=== PATIENT | female | born 1945 | race Caucasian/White ===

== ENCOUNTER 2018-08-17 14:09 | Emergency (ER) | payer MEDICARE, OTHER ==
--- NOTE | 2018-08-17 15:17 | EDM.PDOC ---
ED HPI GENERAL MEDICAL PROBLEM - General Chief Complaint: Head Injury Stated Complaint: HEAD INJURY Time Seen by Provider: 08/17/18 14:59 Source of Information: Reports: Patient, Family (), RN Notes Reviewed History Limitations: Reports: No Limitations - History of Present Illness INITIAL COMMENTS - FREE TEXT/NARRATIVE: The patient states that she tripped and fell while walking at [facility] around noon today, striking the back center of her head. She was not knocked unconscious. She denies having a headache. There has not been any altered mental status, indeed, the patient drove herself to the ED. No recent vision changes or neurologic symptoms. She states she is otherwise uninjured, although she does complain of posterior neck soreness/stiffness. The patient's PCP is Sherry Proctor. Head Pain Score (Numeric/FACES): 3 - Related Data Allergies Allergy/AdvReac Type Severity Reaction Status Date / Time Penicillins Allergy Rash Verified 08/17/18 14:17 Sulfa (Sulfonamide Allergy Rash Verified 08/17/18 14:17 Antibiotics) Home Meds: Home Meds Albuterol [Proventil HFA] 2 puff IH Q2HR PRN 04/07/14 [History] Brimonidine Tartrate 1 drop OP DAILY 04/07/14 [History] Ipratropium [Atrovent HFA] 2 puff IH BID 04/07/14 [History] Levothyroxine 25 mg PO DAILY 04/07/14 [History] PEG 400/Propylene Glycol [Systane 0.4-0.3%] 1 drop OP DAILY 04/07/14 [History] Ped Mvit A,C,D3 No.21/Fluoride [Vit A,D,C & Fluor] 1 mg PO DAILY 04/07/14 [ History] Travoprost [Travatan Z] 1 drop OP DAILY 04/07/14 [History] levoFLOXacin [Levaquin] 500 mg PO DAILY #7 tab 04/07/14 [Rx] predniSONE [Prednisone] 20 mg PO Q12HR #8 tablet 04/07/14 [Rx] Past Medical History Cardiovascular History: Reports: High Cholesterol Respiratory History: Reports: Asthma (PFT confirmed) Genitourinary History: Reports: Urinary Incontinence (stress incontinence) Musculoskeletal History: Reports: Osteoarthritis Endocrine/Metabolic History: Reports: Hypothyroidism - Past Surgical History HEENT Surgical History: Reports: Cataract Surgery Musculoskeletal Surgical History: Reports: Shoulder Surgery (right, open) Social & Family History - Tobacco Use Smoking Status *Q: Current Every Day Smoker Years of Tobacco use: 58 Packs/Tins Daily: 0.3 Packs/Tins Daily Comment: Down from 1 ppd - Caffeine Use Caffeine Use: Reports: Soda, Tea - Alcohol Use Alcohol Use History: No - Recreational Drug Use Recreational Drug Use: No - Living Situation & Occupation Living situation: Reports: , with Spouse Occupation: Retired ED ROS GENERAL - Review of Systems Review Of Systems: ROS reveals no pertinent complaints other than HPI. ED EXAM, HEAD INJURY - Physical Exam Exam: See Below Exam Limited By: No Limitations General Appearance: Alert, WD/WN, No Apparent Distress Head: Normocephalic, Scalp Hematoma (about 8 cm diameter, central posterior- superior scalp, with punctate central drop of blood. Tender only to the inferior aspect.) Eyes: Bilateral Eye: EOMI, Normal Inspection Ears: Normal External Exam, Normal Canal, Hearing Grossly Normal, Normal TMs Nose: Normal Inspection, Normal Mucousa, No Blood Throat/Mouth: Normal Inspection, Normal Lips, Normal Teeth, Normal Gums, Normal Oropharynx, Normal Voice, No Airway Compromise Neck: Normal Alignment, Limited Range of Motion, Tenderness (posterior cervical spine) Respiratory: No Respiratory Distress, Lungs Clear, Normal Breath Sounds, No Accessory Muscle Use Cardiovascular: Normal Peripheral Pulses, Regular Rate, Rhythm, No Gallop, No JVD, No Murmur, No Rub GI/Abdominal Exam: Normal Bowel Sounds, Soft, Non-Tender, No Organomegaly, No Distention, No Abnormal Bruit, No Mass (Female) Exam: Deferred Rectal (Female) Exam: Deferred Back Exam: Full Range of Motion, Normal Inspection, NT Extremities: Normal Inspection, Normal Range of Motion, Normal Capillary Refill Neurologic: well services operator II-XII nml As Tested, No Motor/Sensory Deficits, Alert, Oriented x 3 Skin: Normal Color, Warm/Dry Course - Vital Signs Last Recorded V/S: Last Vital Signs Temp 36.1 C 08/17/18 14:15 Pulse 89 08/17/18 14:15 Resp 18 08/17/18 14:15 BP 153/88 H 08/17/18 14:15 Pulse Ox 98 08/17/18 14:15 - Re-Assessments/Exams Free Text/Narrative Re-Assessment/Exam: 08/17/18 15:17 The patient has a fairly large hematoma on her posterior scalp, however, I am not concerned about an intracranial injury. The patient is complaining, however , of posterior neck pain, of which I am much more concerned. A cervical collar was therefore placed. I ordered a CT scan of the head and C-spine. 08/17/18 16:12 CT of the head without contrast is read by Dr. Small as: 1. Large soft tissue hematoma posteriorly within the scalp. 2. Senescent change as noted above. 3. No acute intracranial abnormality is seen. No skull fracture is noted. CT of the cervical spine without contrast is read by Dr. Small as: 1. Degenerative change as noted above. 2. Nothing acute is seen on CT study of the cervical spine. 08/17/18 16:28 The patient was reevaluated and she reports no tenderness to palpation of her cervical spine. I removed the cervical collar, and will discharge her home. I recommended that she apply ice packs to the hematoma the next couple of days, and she may take an [id number] analgesic as needed. Departure - Departure Time of Disposition: 16:36 Disposition: Home, Self-Care 01 Condition: Good Clinical Impression: Fall, Scalp hematoma - Discharge Information *PRESCRIPTION DRUG MONITORING PROGRAM REVIEWED*: Not Applicable *COPY OF PRESCRIPTION DRUG MONITORING REPORT IN PATIENT JONATHAN: Not Applicable Referrals: Sherry Proctor PA-C [Primary Care Provider] - Forms: ED Department Discharge Additional Instructions: You were seen in the emergency room after tripping and falling, striking the back of your head. Workup in the ER included the scans of your head and neck, both of which were normal. You do not have a skull fracture. You do not have a broken neck. For the bump on the back of your head, we recommend that you apply ice packs for the next couple of days. Wash your hair with ordinary shampoo, as you normally would. You may take an [id number] pain reliever, such as Tylenol, ibuprofen, or naproxen, as needed. Follow-up with your PCP, Sherry Proctor, as needed. If any other problems, please do not hesitate to return to the ER.
--- NOTE | 2018-08-17 16:06 | CT ---
Head CT Technique: Multiple axial sections through the brain were obtained. Intravenous contrast was not utilized. Comparison: No prior intracranial imaging. Findings: Large soft tissue hematoma is seen posteriorly within the scalp. Ventricles along with basal cisterns and sulci over the convexities are mild to moderately prominent. Diffuse diminished density is noted within the periventricular and subcortical white matter compatible with small vessel ischemic demyelination change. Old lacunar infarcts are noted within the basal ganglia. No other abnormal parenchymal densities are seen. No evidence of intracranial hemorrhage. Bone window settings were reviewed which shows the visualized sinuses to appear clear. No skull fracture is seen. Impression: 1. Large soft tissue hematoma posteriorly within the scalp. 2. Senescent change as noted above. 3. No acute intracranial abnormality is seen. No skull fracture is noted. Diagnostic code #2
--- NOTE | 2018-08-17 16:06 | CT ---
CT cervical spine Technique: Multiple axial sections were obtained from above C1 inferiorly to the bottom of T2. Reconstructed sagittal and coronal images were reviewed. Comparison: No prior CT cervical spine study. Findings: Mild spondylolisthesis is noted at C5-6 compatible with degenerative apophyseal change. Other degenerative apophyseal change is seen throughout the cervical spine. Disc spaces and vertebral body heights are maintained. Moderate left sided neural foraminal stenosis is noted at C3-4. Mild right-sided neural foraminal stenosis is noted at C4-5. Moderate left-sided neural foraminal stenosis is noted at C5-6. Other neural foramina are patent. No bony central canal stenosis is seen. No fracture is identified. Mild degenerative change noted within the uncovertebral joints at C3-4 and C4-5. Mild scoliosis is noted. Impression: 1. Degenerative change as noted above. 2. Nothing acute is seen on CT study of the cervical spine. Diagnostic code #1
== END 2018-08-17 16:44 | disposition home or self-care (01) ==
LOC: JD.ED 14:09
DX: S00.03XA Contusion of scalp, initial encounter (principal); M54.2 Cervicalgia; E03.9 Hypothyroidism, unspecified; J45.909 Unspecified asthma, uncomplicated; W01.198A Fall on same level from slipping, tripping and stumbling with subsequent striking against other object, initial encounter; F17.210 Nicotine dependence, cigarettes, uncomplicated; Z79.899 Other long term (current) drug therapy; Z88.0 Allergy status to penicillin; Z88.2 Allergy status to sulfonamides
CPT/HCPCS: 70450; 70450-26; 72125; 72125-26; 99284-25

== ENCOUNTER 2019-07-27 10:47 | Emergency (ER) | payer MEDICARE, OTHER ==
[2019-07-27] MEDS ORDERED: Albuterol/Ipratropium 3.0-0.5 MG/3 ML Neb Soln NEB ONE (12:05)
--- NOTE | 2019-07-27 12:10 | EDM.PDOC ---
ED HPI GENERAL MEDICAL PROBLEM - General Chief Complaint: Respiratory Problem Stated Complaint: SOB,COUGHING Time Seen by Provider: 07/27/19 11:39 Source of Information: Reports: Patient, RN Notes Reviewed History Limitations: Reports: No Limitations - History of Present Illness INITIAL COMMENTS - FREE TEXT/NARRATIVE: Patient is a 74-year-old female who presents to the ED for the evaluation of increased shortness of breath and a cough. She notes this has been going on for 2 weeks now. She states that the cough was not productive at the beginning of this, however the last 4-5 days, she is getting increasingly more colored sputum with this cough. She notes it to be yellow to green in color. She has a history of asthma, and does take albuterol inhalers, nebulizers for help with this. She notes that she has been taking her inhalers more often, her last albuterol was at 10 AM this morning. She states that the nebs help her the most , provider at least 1 hour relief. She notes that even walking small distances like 25 feet, to the bathroom and back, that this does wind her, she has to sit down and recuperate for quite some time after this. She states she's had a runny nose, but not had any discernible fever at home. She came to the ER, she states she is feeling worse, and is not able to get in with her doctor until Wednesday. Primary care provider is Sherry Proctor The patient states that her was recently diagnosed with pneumonia as well, this was roughly 3 or 4 days ago. She has gotten an influenza vaccine this year. Of note patient is still a current smoker, smokes about half pack per day. By history, it would suggest that she does have COPD as well and asthma. - Related Data Allergies Allergy/AdvReac Type Severity Reaction Status Date / Time Penicillins Allergy Rash Verified 07/27/19 11:09 Sulfa (Sulfonamide Allergy Rash Verified 07/27/19 11:09 Antibiotics) Home Meds: Home Meds Albuterol [Proventil HFA] 2 puff IH Q2HR PRN 04/07/14 [History] Ipratropium [Atrovent HFA] 2 puff IH BID 04/07/14 [History] Levothyroxine 25 mcg PO DAILY 04/07/14 [History] PEG 400/Propylene Glycol [Systane 0.4-0.3%] 1 drop OP DAILY 04/07/14 [History] Bimatoprost [LUMIGAN 0.01% Ophth Soln] 1 drop EYEBOTH BEDTIME 07/27/19 [History] atorvaSTATin [Lipitor] 20 mg PO BEDTIME 07/27/19 [History] hydroCHLOROthiazide [Hydrochlorothiazide] 25 mg PO DAILY 07/27/19 [History] methylPREDNISolone [Medrol Dose Pack] 4 mg PO ASDIRECTED 5 Days #1 dospk [Rx] Past Medical History Cardiovascular History: Reports: High Cholesterol Respiratory History: Reports: Asthma Genitourinary History: Reports: Urinary Incontinence Musculoskeletal History: Reports: Osteoarthritis Endocrine/Metabolic History: Reports: Hypothyroidism - Past Surgical History HEENT Surgical History: Reports: Cataract Surgery Musculoskeletal Surgical History: Reports: Shoulder Surgery Social & Family History - Tobacco Use Smoking Status *Q: Current Every Day Smoker Years of Tobacco use: 50 Packs/Tins Daily: 0.5 - Caffeine Use Caffeine Use: Reports: Soda - Recreational Drug Use Recreational Drug Use: No - Living Situation & Occupation Living situation: Reports: , with Spouse Occupation: Retired ED ROS GENERAL - Review of Systems Review Of Systems: See Below Constitutional: Reports: Decreased Appetite. Denies: Fever, Chills HEENT: Reports: Rhinitis Respiratory: Reports: Shortness of Breath, Wheezing, Cough, Sputum Cardiovascular: Denies: Chest Pain GI/Abdominal: Denies: Abdominal Pain, Constipation, Diarrhea, Nausea, Vomiting Neurological: Denies: Dizziness, Headache ED EXAM, GENERAL - Physical Exam Exam: See Below Exam Limited By: No Limitations General Appearance: Alert, WD/WN, No Apparent Distress Eye Exam: Bilateral Eye: EOMI, Normal Inspection, PERRL Ears: Normal External Exam Nose: Normal Inspection, Normal Mucosa, No Blood Throat/Mouth: Normal Inspection, Normal Lips, Normal Teeth, Normal Gums, Normal Oropharynx, Normal Voice, No Airway Compromise Head: Atraumatic, Normocephalic Neck: Normal Inspection Respiratory/Chest: No Respiratory Distress, No Accessory Muscle Use, Chest Non- Tender, Decreased Breath Sounds (diffuse bilaterally), Wheezing (diffuse bilaterally) Cardiovascular: Normal Peripheral Pulses, Regular Rate, Rhythm, No Edema, No Murmur Peripheral Pulses: 3+: Radial (L), Radial (R) GI/Abdominal: Normal Bowel Sounds, Soft, Non-Tender, No Distention, No Mass Extremities: Normal Inspection, Normal Capillary Refill Neurological: Alert, Oriented, Normal Cognition, No Motor/Sensory Deficits Psychiatric: Normal Affect, Normal Mood Skin Exam: Warm, Dry, Intact, Normal Color, No Rash Course - Vital Signs Last Recorded V/S: Last Vital Signs Temp 97.4 F 07/27/19 11:07 Pulse 84 07/27/19 11:07 Resp 19 07/27/19 13:38 BP 136/65 07/27/19 11:07 Pulse Ox 92 L 07/27/19 13:38 - Orders/Labs/Meds Orders: Active Orders 24 hr Category Date Time Status RT Aerosol Therapy [RC] ASDIRECTED Care 07/27/19 12:05 Active Labs: Laboratory Tests 07/27/19 07/27/19 Range/Units 12:28 12:28 WBC 6.11 (3.98-10.04) K/mm3 RBC 4.24 (3.98-5.22) M/mm3 Hgb 13.7 (11.2-15.7) gm/dl Hct 38.9 (34.1-44.9) % MCV 91.7 (79.4-94.8) fl MCH 32.3 H (25.6-32.2) pg MCHC 35.2 (32.2-35.5) g/dl RDW Std Deviation 47.1 H (36.4-46.3) fL Plt Count 200 (182-369) K/mm3 MPV 8.9 L (9.4-12.3) fl Neutrophils % (Manual) 67 H (40-60) % Band Neutrophils % 0 (0-10) % Lymphocytes % (Manual) 23 (20-40) % Atypical Lymphs % 0 % Monocytes % (Manual) 9 (2-10) % Eosinophils % (Manual) 1 (0.7-5.8) % Basophils % (Manual) 0 L (0.1-1.2) Platelet Estimate Adequate RBC Morph Comment Normal Sodium 134 L (136-145) mEq/L Potassium 2.9 L (3.5-5.1) mEq/L Chloride 95 L D (98-107) mEq/L Carbon Dioxide 28 (21-32) mEq/L Anion Gap 13.9 (5-15) BUN 15 (7-18) mg/dL Creatinine 0.9 (0.55-1.02) mg/dL Est Cr Clr Drug Dosing 38.20 mL/min Estimated GFR (MDRD) > 60 (>60) mL/min BUN/Creatinine Ratio 16.7 (14-18) Glucose 87 (83-115) mg/dL Calcium 9.2 (8.5-10.1) mg/dL Total Bilirubin 0.6 (0.2-1.0) mg/dL AST 28 (15-37) U/L ALT 26 (14-59) U/L Alkaline Phosphatase 68 (46-116) U/L Total Protein 7.0 (6.4-8.2) g/dl Albumin 3.4 (3.4-5.0) g/dl Globulin 3.6 gm/dL Albumin/Globulin Ratio 0.9 L (1-2) Meds: Medications Discontinued Medications Generic Name Dose Route Start Last Admin Trade Name Freq PRN Reason Stop Dose Admin Albuterol/Ipratropium 3 ml 07/27/19 12:05 07/27/19 12:34 Duoneb 3.0-0.5 Mg/3 Ml NEB 07/27/19 12:06 3 ml ONETIME ONE Administration Potassium Chloride 40 meq 07/27/19 13:10 07/27/19 13:21 Klor-Con M20 PO 07/27/19 13:11 40 meq ONETIME ONE Administration - Re-Assessments/Exams Free Text/Narrative Re-Assessment/Exam: 07/27/19 12:10 Patient presents to the ED for evaluation of increased cough and shortness of breath. Did order a chest x-ray, CBC, CMP, and a DuoNeb for initial management. 07/27/19 13:09 Chest x-ray is done, and there is increased density identified within the right midlung fixture, which is felt to be atelectasis, emphysematous changes noted, and mild disc space during scattered within the spine and mild scoliosis. Metabolic panel is back, and is remarkable for a decreased potassium at 2.9, 40 mEq by mouth potassium will be ordered for this. Patient's white blood cell count is within normal limits as well. This is most likely an exacerbation of a COPD type asthma nature, we will likely send patient home on a burst of steriods, and have her follow-up with her provider on Wednesday. Departure - Departure Time of Disposition: 13:22 Disposition: Home, Self-Care 01 Condition: Fair Clinical Impression: COPD suggested by initial evaluation Exacerbation of asthma Qualifiers: Asthma severity: mild Asthma persistence: unspecified Qualified Code(s): J45.901 - Unspecified asthma with (acute) exacerbation - Discharge Information *PRESCRIPTION DRUG MONITORING PROGRAM REVIEWED*: No *COPY OF PRESCRIPTION DRUG MONITORING REPORT IN PATIENT JONATHAN: No Prescriptions: methylPREDNISolone [Medrol Dose Pack] 4 mg PO ASDIRECTED 5 Days #1 dospk Instructions: Steps to Quit Smoking, [id number] Referrals: Sherry Proctor PA-C [Primary Care Provider] - Forms: ED Department Discharge Additional Instructions: You were evaluated in the ER today regarding your cough and difficulty breathing. Your chest x-ray demonstrated a spot of atelectasis, which is deflated their sacs within the lungs, as you are not taking as deeper breaths as you should be. You stated that you have incentive spirometer is at home, please use one of these, 10 times every hour while awake. This will help relieve the atelectasis, and help prevent pneumonia. Your chest x-ray also was suggestive of COPD like changes, but there is no sign of a pneumonia today's visit. Laboratory evaluation demonstrated a white blood cell count is within normal limits, but your potassium was mildly low, you did receive 40 mEq of potassium at today's ER visit. You received 1 DuoNeb in the ER, recommend that when he go home, you take your nebulizer you already have, 4 times daily for the next 2 days, then decrease to 3 times daily for the next 2 days, then twice a day for the next 2 days, and then take as needed after that if symptoms are getting better. You were also given a Medrol Dosepak, please take as directed. This was electronically prescribed to the [facility]. Recommend you follow up with her regular provider, Sherry Proctor, sometime early next week for recheck of your symptoms and laboratory evaluation to make sure things are getting better as expected. Please return to the ER however if your symptoms change or worsen in any way. Sepsis Event Note - Evaluation Sepsis Screening Result: No Definite Risk - Focused Exam Vital Signs: Vital Signs Temp Pulse Resp BP Pulse Ox Pulse Ox 07/27/19 13:38 19 92 L 07/27/19 12:05 94 L 07/27/19 11:07 97.4 F 84 16 136/65 94 L Date Exam was Performed: 07/27/19 Time Exam was Performed: 21:06 - My Orders Last 24 Hours: My Active Orders 07/27/19 12:05 RT Aerosol Therapy [RC] ASDIRECTED - Assessment/Plan Last 24 Hours: My Active Orders 07/27/19 12:05 RT Aerosol Therapy [RC] ASDIRECTED
--- NOTE | 2019-07-27 12:58 | CR ---
Chest: Two views of the chest were obtained. Comparison: Prior chest x-ray of 04/07/19. Increased density is identified within the right midlung. Most of this appears to be due to atelectasis along the right minor fissure as seen on the lateral view. Lungs otherwise are clear. Heart size and mediastinum are normal. Diaphragms are flattened on the lateral view compatible with emphysematous change. Mild disc space narrowing is scattered within the spine with mild scoliosis. Impression: 1. Thick area of atelectasis along the minor fissure on the right side. 2. Emphysematous change. 3. Other findings believed to be incidental as noted above. Diagnostic code #3 This report was dictated in [place] Standard Time
[2019-07-27] MEDS ORDERED: Potassium Chloride 20 MEQ Tab.ER PO ONE (13:10)
== END 2019-07-27 13:38 | disposition home or self-care (01) ==
LOC: JD.ED 10:47
DX: J45.901 Unspecified asthma with (acute) exacerbation (principal); E78.00 Pure hypercholesterolemia, unspecified; M19.90 Unspecified osteoarthritis, unspecified site; E03.9 Hypothyroidism, unspecified; F17.210 Nicotine dependence, cigarettes, uncomplicated; Z79.899 Other long term (current) drug therapy; Z88.0 Allergy status to penicillin; Z88.2 Allergy status to sulfonamides
CPT/HCPCS: 36415; 71046; 80053; 85007; 85027; 94640; 99285; A9270; 99283; J7620-GY

== ENCOUNTER 2020-01-28 08:31 | Emergency (ER) | payer MEDICARE, OTHER ==
[2020-01-28] MEDS ORDERED: Acetaminophen/HYDROcodone 325-5 MG Tab PO ONE (09:01)
[2020-01-28] MEDS ORDERED: Diphtheria,Pertussis(Acell),Tetanus Vaccine 0.5 ML Syringe IM ONE (09:04)
--- NOTE | 2020-01-28 10:36 | CR ---
Right wrist: 4 views of the right wrist were obtained. Comparison: No previous study. Soft tissue injury is identified. Joint space narrowing is noted within the MCP joints primarily within the 2nd and 3rd digits. Joint space narrowing is noted off the distal navicular bone as well as moderate degenerative change within the CMC joint of the thumb. No acute fracture, dislocation or other bony abnormality is seen. Impression: 1. Degenerative change as noted above. 2. Soft tissue injury. 3. No acute bony abnormality is appreciated. Diagnostic code #3 This report was dictated in MDT
[2020-01-28] MEDS ORDERED: cefTRIAXone 1 GM, Lidocaine 1% 2.1 ML IM SCH ×2 (10:45)
--- NOTE | 2020-01-28 10:47 | EDM.PDOC ---
ED HPI GENERAL MEDICAL PROBLEM - General Chief Complaint: Skin Complaint Stated Complaint: FALL (RIGHT HAND LAC)/ SOB (COPD) Time Seen by Provider: 01/28/20 08:50 Source of Information: Reports: Patient History Limitations: Reports: No Limitations - History of Present Illness INITIAL COMMENTS - FREE TEXT/NARRATIVE: The patient presents with right hand and wrist pain and swelling. The patient went to sit down 2 days ago and she fell and scrapped the dorsal aspect of her hand and wrist. She has swelling, pain and redness now. She has no fever or chills. Her tetanus is not up to date. She is right handed. Onset: Sudden Duration: Day(s): (2) Location: Reports: Upper Extremity, Right (hand) Quality: Reports: Sharp Severity: Moderate Improves with: Reports: Immobilization Worsens with: Reports: Movement Context: Reports: Trauma (fall) Associated Symptoms: Reports: No Other Symptoms Right Anterior Hand Pain Score (Numeric/FACES): 10 - Related Data Allergies Allergy/AdvReac Type Severity Reaction Status Date / Time Penicillins Allergy Rash Verified 01/28/20 08:50 Sulfa (Sulfonamide Allergy Rash Verified 01/28/20 08:50 Antibiotics) Home Meds: Home Meds Albuterol [Proventil HFA] 2 puff IH Q2HR PRN 04/07/14 [History] Ipratropium [Atrovent HFA] 2 puff IH BID 04/07/14 [History] Levothyroxine 25 mcg PO DAILY 04/07/14 [History] PEG 400/Propylene Glycol [Systane 0.4-0.3%] 1 drop OP DAILY 04/07/14 [History] Bimatoprost [LUMIGAN 0.01% Ophth Soln] 1 drop EYEBOTH BEDTIME 07/27/19 [History] atorvaSTATin [Lipitor] 20 mg PO BEDTIME 07/27/19 [History] hydroCHLOROthiazide [Hydrochlorothiazide] 25 mg PO DAILY 07/27/19 [History] methylPREDNISolone [Medrol Dose Pack] 4 mg PO ASDIRECTED 5 Days #1 dospk 07/27/19 [Rx] Past Medical History Cardiovascular History: Reports: High Cholesterol Respiratory History: Reports: Asthma Genitourinary History: Reports: Urinary Incontinence Musculoskeletal History: Reports: Osteoarthritis Endocrine/Metabolic History: Reports: Hypothyroidism - Past Surgical History HEENT Surgical History: Reports: Cataract Surgery Musculoskeletal Surgical History: Reports: Shoulder Surgery Social & Family History - Tobacco Use Smoking Status *Q: Current Every Day Smoker Years of Tobacco use: 40 Packs/Tins Daily: 0.5 - Caffeine Use Caffeine Use: Reports: Tea - Recreational Drug Use Recreational Drug Use: No - Living Situation & Occupation Living situation: Reports: , with Spouse Occupation: Retired ED ROS GENERAL - Review of Systems Review Of Systems: See Below Constitutional: Reports: No Symptoms HEENT: Reports: No Symptoms Respiratory: Reports: No Symptoms Cardiovascular: Reports: No Symptoms Endocrine: Reports: No Symptoms GI/Abdominal: Reports: No Symptoms : Reports: No Symptoms Musculoskeletal: Reports: Other (Edema, pain and erythema of the right hand and wrist) ED EXAM, SKIN/RASH Exam: See Below Exam Limited By: No Limitations General Appearance: Alert, No Apparent Distress Ears: Normal External Exam Nose: Normal Inspection Head: Atraumatic, Normocephalic Neck: Normal Inspection Respiratory/Chest: No Respiratory Distress, Lungs Clear, Normal Breath Sounds Cardiovascular: Regular Rate, Rhythm, No Edema, No Murmur GI/Abdominal: Soft, Non-Tender, No Organomegaly, No Mass Extremities: Other (Skin tear with avulsion of skin to the right dorsal hand with edema, pain upon palpation and erythema) Course - Vital Signs Last Recorded V/S: Last Vital Signs Temp 97.5 F 01/28/20 08:43 Pulse 81 01/28/20 08:43 Resp 18 01/28/20 08:43 BP 133/72 01/28/20 08:43 Pulse Ox 94 L 01/28/20 08:43 - Orders/Labs/Meds Orders: Active Orders 24 hr Category Date Time Status Vaccines to be Administered [RC] PER UNIT ROUTINE Care 01/28/20 09:04 Active cefTRIAXone [Rocephin] 1 gm Med 01/28/20 10:45 Active Lidocaine 1% [Xylocaine 1%] 2.1 ml IM Q24H Durable Medical Equipment for Discharge [DME for Oth 01/28/20 10:40 Ordered Discharge] [COMM] Stat Medication Orders Ceftriaxone Sodium 1 gm/ (Lidocaine HCl 2.1 ml) 0 gm IM Q24H ALEJA Labs: Laboratory Tests 01/28/20 01/28/20 01/28/20 Range/Units 09:16 09:16 09:16 WBC 8.88 (3.98-10.04) K/mm3 RBC 4.31 (3.98-5.22) M/mm3 Hgb 14.0 (11.2-15.7) gm/dl Hct 40.0 (34.1-44.9) % MCV 92.8 (79.4-94.8) fl MCH 32.5 H (25.6-32.2) pg MCHC 35.0 (32.2-35.5) g/dl RDW Std Deviation 45.8 (36.4-46.3) fL Plt Count 242 (182-369) K/mm3 MPV 9.0 L (9.4-12.3) fl Neut % (Auto) 76.6 H (34.0-71.1) % Lymph % (Auto) 12.8 L (19.3-51.7) % [place] % (Auto) 9.9 (4.7-12.5) % Eos % (Auto) 0.3 L (0.7-5.8) Baso % (Auto) 0.2 (0.1-1.2) % Neut # (Auto) 6.79 H (1.56-6.13) K/mm3 Lymph # (Auto) 1.14 L (1.18-3.74) K/mm3 [place] # (Auto) 0.88 H (0.24-0.36) K/mm3 Eos # (Auto) 0.03 L (0.04-0.36) K/mm3 Baso # (Auto) 0.02 (0.01-0.08) K/mm3 ESR 42 H (0-20) mm/hr C-Reactive Protein 6.9 H* (<1.0) mg/dL Meds: Medications Generic Name Dose Route Start Last Admin Trade Name Freq PRN Reason Stop Dose Admin Ceftriaxone Sodium 1 gm/ 0 gm 01/28/20 10:45 Lidocaine HCl 2.1 ml IM Q24H ALEJA Discontinued Medications Generic Name Dose Route Start Last Admin Trade Name Freq PRN Reason Stop Dose Admin Hydrocodone Bitart/Acetaminophen 1 tab 01/28/20 09:01 01/28/20 09:13 [place] 325-5 Mg PO 01/28/20 09:02 1 tab ONETIME ONE Administration Diphtheria/Tetanus/Acell Pertussis 0.5 ml 01/28/20 09:04 Adacel IM 01/28/20 09:05 .ONCE ONE - Re-Assessments/Exams Free Text/Narrative Re-Assessment/Exam: 01/28/20 10:45 I ordered an x-ray of her wrist and labs. The x-ray of her wrist shows some degenerative change but no fracture. Her WBC was normal. Her ESR was elevated at 42 and CRP was elevated at 6.9. I had my nurse clean the wound. I will get her a shot of rocephin and get her on keflex and I will splint her wrist. I will have her follow up with her doctor within 3 days. Departure - Departure Time of Disposition: 10:50 Disposition: Home, Self-Care 01 Condition: Good Clinical Impression: Cellulitis of multiple sites of hand and wrist Fall Qualifiers: Encounter type: initial encounter Qualified Code(s): W19.XXXA - Unspecified fall, initial encounter - Discharge Information *PRESCRIPTION DRUG MONITORING PROGRAM REVIEWED*: Not Applicable *COPY OF PRESCRIPTION DRUG MONITORING REPORT IN PATIENT JONATHAN: Not Applicable Referrals: Sherry Proctor PA-C [Primary Care Provider] - 3 Days Additional Instructions: Soak your hand in warm soapy water 2 times per day and put antibiotic ointment after for 5 days and then leave it open to dry with no antibiotic ointment. Wear the splint for comfort. Take the keflex 4 times per day for 10 days. Please return if this is not getting better within 3 days. Follow up with Sherry Proctor within 3 days. Sepsis Event Note (ED) - Evaluation Sepsis Screening Result: No Definite Risk - Focused Exam Vital Signs: Vital Signs Temp Pulse Resp BP Pulse Ox 01/28/20 08:43 97.5 F 81 18 133/72 94 L - My Orders Last 24 Hours: My Active Orders 01/28/20 09:04 Vaccines to be Administered [RC] PER UNIT ROUTINE 01/28/20 10:40 Durable Medical Equipment for Discharge [DME for Discharge] [COMM] Stat 01/28/20 10:45 cefTRIAXone [Rocephin] 1 gm Lidocaine 1% [Xylocaine 1%] 2.1 ml IM Q24H - Assessment/Plan Last 24 Hours: My Active Orders 01/28/20 09:04 Vaccines to be Administered [RC] PER UNIT ROUTINE 01/28/20 10:40 Durable Medical Equipment for Discharge [DME for Discharge] [COMM] Stat 01/28/20 10:45 cefTRIAXone [Rocephin] 1 gm Lidocaine 1% [Xylocaine 1%] 2.1 ml IM Q24H
== END 2020-01-28 11:06 | disposition home or self-care (01) ==
LOC: JD.ED 08:31
DX: L03.113 Cellulitis of right upper limb (principal); E78.00 Pure hypercholesterolemia, unspecified; E03.9 Hypothyroidism, unspecified; J45.909 Unspecified asthma, uncomplicated; F17.210 Nicotine dependence, cigarettes, uncomplicated; Z23 Encounter for immunization; Z88.0 Allergy status to penicillin; Z88.2 Allergy status to sulfonamides; Z79.899 Other long term (current) drug therapy; W19.XXXA Unspecified fall, initial encounter
CPT/HCPCS: 36415; 73110; 85025; 85652; 86140; 90471; 90715; 96372; 99283; A9270; J0696; J2001

== ENCOUNTER 2020-09-27 10:27 | Emergency (ER) | payer MEDICARE, OTHER ==
[2020-09-27] MEDS ORDERED: Albuterol/Ipratropium 3.0-0.5 MG/3 ML Neb Soln NEB ONE (11:24)
[2020-09-27] MEDS ORDERED: predniSONE 20 MG Tab PO ONE (11:24)
--- NOTE | 2020-09-27 11:28 | CR ---
Chest: Portable view of the chest was obtained. Comparison: Prior chest x-ray of 07/27/19. Heart size and mediastinum are normal. Lungs are clear with no acute parenchymal change. Bony structure shows nothing acute. Impression: 1. Nothing acute is seen on portable chest x-ray. Diagnostic code #1
--- NOTE | 2020-09-27 11:35 | EDM.PDOC ---
ED HPI GENERAL MEDICAL PROBLEM - General Chief Complaint: Respiratory Problem Stated Complaint: SOB Time Seen by Provider: 09/27/20 11:06 Source of Information: Reports: Patient, RN Notes Reviewed History Limitations: Reports: No Limitations - History of Present Illness INITIAL COMMENTS - FREE TEXT/NARRATIVE: Is a 75-year-old female presenting to the emergency department complaints of a 3-week history of progressively worsening shortness of breath with exertion. She also complains of a dry cough as well as increased wheezing. She does have a history of COPD for which she takes albuterol nebulizer treatments, Spiriva, and albuterol inhaler. She states that the albuterol neb nebulizer normally helps, however over the last few days it has not been helping any longer. She denies any shortness of breath at rest. She does not wear home oxygen. She has had no chest pain, fever, chills, nausea, or vomiting. She states that her was recently treated for bronchitis and she feels that that is what she has also. She was seen at the walk-in clinic prior to coming to the ER and states that they were concerned that she could be having heart problems. - Related Data Allergies Allergy/AdvReac Type Severity Reaction Status Date / Time Penicillins Allergy Rash Verified 09/27/20 10:48 Sulfa (Sulfonamide Allergy Rash Verified 09/27/20 10:48 Antibiotics) Home Meds: Home Meds Albuterol [Proventil HFA] 2 puff IH Q2HR PRN 04/07/14 [History] Levothyroxine 25 mcg PO DAILY 04/07/14 [History] PEG 400/Propylene Glycol [Systane 0.4-0.3%] 1 drop OP DAILY 04/07/14 [History] Bimatoprost [LUMIGAN 0.01% Ophth Soln] 1 drop EYEBOTH BEDTIME 07/27/19 [History] atorvaSTATin [Lipitor] 20 mg PO BEDTIME 07/27/19 [History] hydroCHLOROthiazide [Hydrochlorothiazide] 25 mg PO DAILY 07/27/19 [History] Albuterol [Proventil Neb Soln] 1 ampule NEB Q6H PRN 09/27/20 [History] Albuterol/Ipratropium [DuoNeb 3.0-0.5 MG/3 ML] 3 ml .XX Q4H PRN #30 neb 09/27/20 [Rx] Azithromycin 250 mg PO ASDIRECTED 5 Days #6 tablet 09/27/20 [Rx] Multivitamin 1 each PO DAILY 09/27/20 [History] Tiotropium [Spiriva] 18 mcg INH BID 09/27/20 [History] Ubidecarenone [Coenzyme Q10] 100 mg PO DAILY 09/27/20 [History] predniSONE [Prednisone] 20 mg PO ASDIRECTED #13 tablet 09/27/20 [Rx] Past Medical History Cardiovascular History: Reports: High Cholesterol Respiratory History: Reports: Asthma, COPD Genitourinary History: Reports: Urinary Incontinence Musculoskeletal History: Reports: Osteoarthritis Endocrine/Metabolic History: Reports: Hypothyroidism - Past Surgical History HEENT Surgical History: Reports: Cataract Surgery Musculoskeletal Surgical History: Reports: Shoulder Surgery Social & Family History - Tobacco Use Tobacco Use Status *Q: Current Every Day Tobacco User Years of Tobacco use: 50 Packs/Tins Daily: 0.5 - Caffeine Use Caffeine Use: Reports: Soda, Tea - Recreational Drug Use Recreational Drug Use: No - Living Situation & Occupation Living situation: Reports: , with Spouse Occupation: Retired ED ROS GENERAL - Review of Systems Review Of Systems: See Below Constitutional: Reports: No Symptoms. Denies: Fever, Chills, Weakness, Fatigue HEENT: Reports: No Symptoms Respiratory: Reports: Shortness of Breath, Wheezing, Cough Cardiovascular: Reports: Dyspnea on Exertion. Denies: Chest Pain, Lightheadedness, Palpitations, Syncope Endocrine: Reports: No Symptoms GI/Abdominal: Reports: No Symptoms : Reports: No Symptoms Musculoskeletal: Reports: No Symptoms Skin: Reports: No Symptoms Neurological: Reports: No Symptoms Psychiatric: Reports: No Symptoms Hematologic/Lymphatic: Reports: No Symptoms Immunologic: Reports: No Symptoms ED EXAM, GENERAL - Physical Exam Exam: See Below Exam Limited By: No Limitations General Appearance: Alert, WD/WN, No Apparent Distress Respiratory/Chest: No Respiratory Distress, No Accessory Muscle Use, Chest Non- Tender, Decreased Breath Sounds (Throughout), Wheezing (Faint expiratory) Cardiovascular: Normal Peripheral Pulses, Regular Rate, Rhythm, No Edema, No Gallop, No JVD, No Murmur, No Rub GI/Abdominal: Normal Bowel Sounds, Soft, Non-Tender, No Organomegaly, No Distention, No Abnormal Bruit, No Mass Extremities: Normal Inspection, Normal Range of Motion, Non-Tender, Normal Capillary Refill, No Pedal Edema Neurological: Alert, Oriented, CN II-XII Intact, Normal Cognition, Normal Gait, Normal Reflexes, No Motor/Sensory Deficits Psychiatric: Normal Affect, Normal Mood Skin Exam: Warm, Dry, Intact, Normal Color, No Rash #1 Interpretation EKG Date: 09/27/20 Time: 11:09 Rhythm: NSR Rate (Beats/Min): 97 [place]: Normal P-Wave: Present QRS: Normal ST-T: Normal QT: Normal Course - Vital Signs Last Recorded V/S: Last Vital Signs Temp 98.9 F 09/27/20 10:45 Pulse 99 09/27/20 10:45 Resp 20 09/27/20 10:45 BP 140/78 09/27/20 10:45 Pulse Ox 95 09/27/20 11:50 - Orders/Labs/Meds Orders: Active Orders 24 hr Category Date Time Status EKG 12 Lead [EK] Stat Ther 09/27/20 10:50 Ordered Labs: Laboratory Tests 09/27/20 09/27/20 09/27/20 Range/Units 11:00 11:00 11:00 WBC 8.51 (3.98-10.04) K/mm3 RBC 4.41 (3.98-5.22) M/mm3 Hgb 14.0 (11.2-15.7) gm/dl Hct 41.3 (34.1-44.9) % MCV 93.7 (79.4-94.8) fl MCH 31.7 (25.6-32.2) pg MCHC 33.9 (32.2-35.5) g/dl RDW Std Deviation 45.6 (36.4-46.3) fL Plt Count 224 (182-369) K/mm3 MPV 9.9 (9.4-12.3) fl Neut % (Auto) 84.3 H (34.0-71.1) % Lymph % (Auto) 6.2 L (19.3-51.7) % [place] % (Auto) 8.6 (4.7-12.5) % Eos % (Auto) 0 L (0.7-5.8) Baso % (Auto) 0.1 (0.1-1.2) % Neut # (Auto) 7.17 H (1.56-6.13) K/mm3 Lymph # (Auto) 0.53 L (1.18-3.74) K/mm3 [place] # (Auto) 0.73 H (0.24-0.36) K/mm3 Eos # (Auto) 0.00 L (0.04-0.36) K/mm3 Baso # (Auto) 0.01 (0.01-0.08) K/mm3 Manual Slide Review Abnormal smear Sodium 138 (136-145) mEq/L Potassium 3.8 (3.5-5.1) mEq/L Chloride 100 (98-107) mEq/L Carbon Dioxide 25 (21-32) mEq/L Anion Gap 16.8 H (5-15) BUN 31 H (7-18) mg/dL Creatinine 1.2 H (0.55-1.02) mg/dL Est Cr Clr Drug Dosing 28.20 mL/min Estimated GFR (MDRD) 44 (>60) mL/min BUN/Creatinine Ratio 25.8 H (14-18) Glucose 101 (83-115) mg/dL Calcium 9.6 (8.5-10.1) mg/dL Magnesium 2.3 (1.8-2.4) mg/dl Total Bilirubin 0.7 (0.2-1.0) mg/dL AST 19 (15-37) U/L ALT 18 (14-59) U/L Alkaline Phosphatase 69 (46-116) U/L Troponin I < 0.017 (0.00-0.056) ng/mL NT-Pro-B Natriuret Pep 1776 H (0-450) pg/mL Total Protein 7.5 (6.4-8.2) g/dl Albumin 4.1 (3.4-5.0) g/dl Globulin 3.4 gm/dL Albumin/Globulin Ratio 1.2 (1-2) Meds: Medications Discontinued Medications Generic Name Dose Route Start Last Admin Trade Name Freq PRN Reason Stop Dose Admin Albuterol/Ipratropium 3 ml 09/27/20 11:24 09/27/20 11:50 Duoneb 3.0-0.5 Mg/3 Ml NEB 09/27/20 11:25 3 ml ONETIME ONE Administration Prednisone 40 mg 09/27/20 11:24 09/27/20 11:37 Prednisone PO 09/27/20 11:25 40 mg ONETIME ONE Administration - Re-Assessments/Exams Free Text/Narrative Re-Assessment/Exam: Patient is a 75-year-old female presenting to the emergency department complaints of a 3-week history of increased shortness of breath, cough, and increased wheezing. She is had no chest pain. She is not short of breath at rest. She has been using her home albuterol nebulizers and inhalers which she states seem to not be working as well. On exam, she does have faint expiratory wheeze. Chest x-ray was completed upon arrival to ER and shows no acute abnormalities. Findings are suspicious for COPD exacerbation. Blood work was also ordered per standing order upon patient's arrival. We will wait for the results of that. In the meantime I ordered a DuoNeb breathing treatment as well as prednisone 40 mg to be given now. 09/27/20 12:02 Hematology significant for anion gap 16.8, BUN 31, creatinine 1.2. Troponin is negative. EKG shows no acute abnormalities. Patient is likely suffering from a COPD exacerbation. I will start her on tapering prednisone, azithromycin, and sent a prescription for DuoNeb breathing treatments. Discharge instructions as documented. Departure - Departure Time of Disposition: 12:03 Disposition: Home, Self-Care 01 Condition: Good Clinical Impression: COPD exacerbation - Discharge Information *PRESCRIPTION DRUG MONITORING PROGRAM REVIEWED*: No *COPY OF PRESCRIPTION DRUG MONITORING REPORT IN PATIENT JONATHAN: No Prescriptions: Azithromycin 250 mg PO ASDIRECTED 5 Days #6 tablet Albuterol/Ipratropium [DuoNeb 3.0-0.5 MG/3 ML] 3 ml .XX Q4H PRN #30 neb PRN Reason: Shortness Of Breath predniSONE [Prednisone] 20 mg PO ASDIRECTED #13 tablet Instructions: Chronic Obstructive Pulmonary Disease Exacerbation Referrals: Sherry Proctor PA-C [Primary Care Provider] - Fozia Dickinson STRICKLER ATTENDANT [Nurse Practitioner] - Forms: ED Department Discharge Additional Instructions: You were seen in the emergency department today for cough and a 3-week history of progressively worsening shortness of breath with exertion. Work-up included blood work, EKG, chest x-ray. Results of your work-up were found to be overall normal. Chest x-ray showed no pneumonia. Your cardiac work-up was normal. As we discussed, you are likely suffering from a COPD exacerbation/bronchitis. You been started on prednisone, azithromycin, and DuoNeb breathing treatments. You did receive your first dose of prednisone in the ER. Take the azithromycin as prescribed starting today. Use the DuoNeb breathing treatments and replacement of your albuterol neb treatments. Recommend follow-up with your primary care provider at the end of the week. Return to ER as needed. Sepsis Event Note (ED) - Evaluation Sepsis Screening Result: No Definite Risk - Focused Exam Vital Signs: Vital Signs Temp Pulse Resp BP Pulse Ox Pulse Ox 09/27/20 11:50 95 09/27/20 10:45 98.9 F 99 20 140/78 95 - My Orders Last 24 Hours: My Active Orders 09/27/20 10:50 EKG 12 Lead [EK] Stat - Assessment/Plan Last 24 Hours: My Active Orders 09/27/20 10:50 EKG 12 Lead [EK] Stat
== END 2020-09-27 12:20 | disposition home or self-care (01) ==
LOC: JD.ED 10:27
DX: J44.1 Chronic obstructive pulmonary disease with (acute) exacerbation (principal); E78.00 Pure hypercholesterolemia, unspecified; E03.9 Hypothyroidism, unspecified; Z72.0 Tobacco use; Z79.899 Other long term (current) drug therapy; Z88.0 Allergy status to penicillin; Z88.2 Allergy status to sulfonamides
CPT/HCPCS: 36415; 71045; 80053; 83735; 83880; 84484; 85025; 93005; 94640; 99285; J7512; 93010; 99284; J7620-GY

== ENCOUNTER 2021-07-28 08:33 | Day surgery (SDC) | payer MEDICARE, OTHER ==
[~2021-07-28 08:33] MED LIST: EPINEPHrine 1 MG/ML SDV ONE; Lactated Ringers 1,000 ML IV SCH; Lactated Ringers 1,000 ML ONE; Lidocaine 1%/Sod Bicarbonate in NS 8.4% 1 ML Syringe IDERM PRN; Midazolam 1 MG/ML 2 ML SDV ONE; Ondansetron 4 MG/2 ML SDV ONE; Propofol 200 MG/20 ML SDV ONE; Ropivacaine 0.5% 5 MG/ML 30 ML SDV ONE; Sodium Chloride 0.9% 10 ML Syringe FLUSH SCH; ceFAZolin 1 GM Vial ONE; fentaNYL 100 MCG/2 ML SDV ONE
[2021-07-28] MEDS ORDERED: Albuterol 0.083% 2.5 MG/3 ML Neb Soln NEB ONE ×2 (08:37→12:29)
[2021-07-28] MEDS ORDERED: ePHEDrine 50 MG/ML SDV ONE (10:47)
[2021-07-28] MEDS ORDERED: Lidocaine 1% 4 ML ONE (10:51)
[2021-07-28] MEDS ORDERED: HYDROmorphone 0.5 MG/0.5 ML Syringe IVPUSH PRN (11:15)
[2021-07-28] MEDS ORDERED: fentaNYL 100 MCG/2 ML SDV IVPUSH PRN (11:15)
[2021-07-28] MEDS ORDERED: Ondansetron 4 MG/2 ML SDV IVPUSH PRN (11:15)
[2021-07-28] MEDS: Morphine 8 MG, EPINEPHrine 0.3 MG, Cefuroxime 750 MG, Ketorolac 30 MG, Sodium Chloride ... PRN ×10 (11:21→11:47)
[2021-07-28] MEDS: Vancomycin 1 GM SDV ONE ×2 (11:22→11:53)
[2021-07-28] MEDS ORDERED: Lidocaine 1% 2 ML ONE (11:45)
== END 2021-07-28 15:53 | disposition home or self-care (01) ==
LOC: JD.SDS 08:33
PROVIDERS: ATTEND Orthopaedic Surgery
DX: M17.11 Unilateral primary osteoarthritis, right knee (principal); J44.9 Chronic obstructive pulmonary disease, unspecified; M10.9 Gout, unspecified; E78.00 Pure hypercholesterolemia, unspecified; M85.80 Other specified disorders of bone density and structure, unspecified site; F17.200 Nicotine dependence, unspecified, uncomplicated; Z88.0 Allergy status to penicillin; Z88.2 Allergy status to sulfonamides; Z79.899 Other long term (current) drug therapy; Z79.890 Hormone replacement therapy; Z98.890 Other specified postprocedural states
CPT/HCPCS: 27447; 73560; 97110; 97116; 97161; C1713; C1776; J0171; J0690; J0697; J1885; J2250; J2270; J2370; J2704; J2795; J3370; J7120; 01402; 64450; 76942; J2405; J3010

== ENCOUNTER 2021-08-08 10:58 | Emergency (ER) | payer MEDICARE, OTHER ==
[2021-08-08] MEDS ORDERED: Lidocaine 2% Jelly 10 ML Urojet MUCMEM ONE (11:57)
== END 2021-08-08 15:38 | disposition home or self-care (01) ==
LOC: JD.ED 10:58 → SUPCPDRO 10:58 → JD.ED 15:38
DX: K59.00 Constipation, unspecified (principal); E78.00 Pure hypercholesterolemia, unspecified; J44.9 Chronic obstructive pulmonary disease, unspecified; E03.9 Hypothyroidism, unspecified; Z72.0 Tobacco use; Z88.0 Allergy status to penicillin; Z88.2 Allergy status to sulfonamides; Z79.899 Other long term (current) drug therapy
CPT/HCPCS: 74019; 74019-26; 99283-25

== ENCOUNTER 2022-04-11 12:05 | Emergency (ER) | payer MEDICARE, OTHER ==
[2022-04-11] MEDS ORDERED: Sodium Chloride 0.9% 10 ML Syringe FLUSH PRN (12:25)
[2022-04-11] MEDS ORDERED: Albuterol/Ipratropium 3.0-0.5 MG/3 ML Neb Soln NEB ONE (12:38)
[2022-04-11 13:00] LABS: CORONAVIRUS COVID-19 NAA NEGATIVE (NEGATIVE)
[2022-04-11 13:40] LABS: ESTIMATED GFR 51 mL/min (>60)
[2022-04-11] MEDS ORDERED: methylPREDNISolone Sodium Succinate 125 MG/2 ML SDV IVPUSH ONE (14:19)
== END 2022-04-11 15:07 | disposition home or self-care (01) ==
LOC: JD.ED 12:05
DX: J44.1 Chronic obstructive pulmonary disease with (acute) exacerbation (principal); E03.9 Hypothyroidism, unspecified; F17.210 Nicotine dependence, cigarettes, uncomplicated; Z88.8 Allergy status to other drugs, medicaments and biological substances; Z88.0 Allergy status to penicillin; Z88.2 Allergy status to sulfonamides; Z79.899 Other long term (current) drug therapy; Z20.822 Contact with and (suspected) exposure to COVID-19
CPT/HCPCS: 0241U; 36415; 71045; 80053; 83880; 84484; 85007; 85027; 85610; 85730; 87040; 93005; 94640; 96374; 99285; J2930; J3490; 93010; 99284; J7620-GY